=== PATIENT | male | born 1960 | race African-American/Black ===

== ENCOUNTER 2017-10-13 05:43 | Emergency (ER) | payer BC, OTHER ==
[~2017-10-13 05:43] MED LIST: Z.0.NO CURRENT MEDS
[2017-10-13 05:46] VITALS: BP 141/82; PULSE 77; RESP 18; TEMP 97.6; O2SAT 100
[2017-10-13] MEDS ORDERED: CEPH-460 PO (06:31)
[2017-10-13] MEDS ORDERED: TYLETAB34 PO (06:31)
--- NOTE | 2017-10-13 06:32 | PD ---
HPI Chief Complaint: Lump, Cyst, Hernia Time Seen by Provider: 06:19 Travel History International Travel<30 days: No Contact w/Intl Traveler<30days: No Traveled to known affect area: No History of Present Illness HPI Patient is a 56-year-old male presenting to the emergency department for evaluation of a cyst to his mid upper back. Patient states it started bleeding yesterday. He reports that he has had this cyst since he was a teenager. He reports that his doctor who is Dr. Hines stated it was in fact assess. Patient states that it has not bothered him before now. He denies any fevers, redness, warmth. He states it is tender but denies any significant pain. Patient denies a significant past medical history. Symptom onset was years ago , symptoms are chronic in nature with an acute exacerbation. PFSH Past Medical History Medical History: Denies Significant Hx Diminished Hearing: No Past Surgical History Surgical History: No Previous Surgery Social History Alcohol Use: No Tobacco Use: No Substance Use: No Allergies-Medications (Allergen,Severity, Reaction): Coded Allergies: No Known Allergies (Unverified , 08/16/12) Reported Meds & Prescriptions Reported Meds & Active Scripts Active Reported No Current Meds (Miscellaneous Medication) Misc Review of Systems Except as stated in HPI: all other systems reviewed are Neg Skin: Positive Lumps Physical Exam Narrative GENERAL: Well-developed, well-nourished, alert -[place] male. Presenting in no acute distress. SKIN: Warm and dry. 6 inch by four-inch area of firmness to the left upper back adjacent to scapula. There is a 2 cm area of fluctuance in that area. No erythema or warmth noted. HEAD: Atraumatic. Normocephalic. EYES: Pupils equal and round. No scleral icterus. No injection or drainage. ENT: No nasal bleeding or discharge. Mucous membranes pink and moist. NECK: Trachea midline. No JVD. CARDIOVASCULAR: Regular rate and rhythm. RESPIRATORY: No accessory muscle use. Clear to auscultation. Breath sounds equal bilaterally. GASTROINTESTINAL: Abdomen soft, non-tender, nondistended. Hepatic and splenic margins not palpable. MUSCULOSKELETAL: Extremities without clubbing, cyanosis, or edema. No obvious deformities. NEUROLOGICAL: Awake and alert. No obvious cranial nerve deficits. Motor grossly within normal limits. Five out of 5 muscle strength in the arms and legs. Normal speech. PSYCHIATRIC: Appropriate mood and affect; insight and judgment normal. Data Data Last Documented VS Vital Signs Date Time Temp Pulse Resp B/P (MAP) Pulse Ox O2 Delivery O2 Flow Rate FiO2 10/13/17 05:46 97.6 77 18 141/82 (101) 100 [facility] Medical Decision Making Medical Screen Exam Complete: Yes Emergency Medical Condition: Yes Interpretation(s) Vital Signs Date Time Temp Pulse Resp B/P (MAP) Pulse Ox O2 Delivery O2 Flow Rate FiO2 10/13/17 05:46 97.6 77 18 141/82 (101) 100 Differential Diagnosis Abscess versus sebaceous cyst versus cellulitis versus other Narrative Course Patient is a 56-year-old male presenting to the emergency department for evaluation of a cyst that started draining yesterday. Exam appears consistent with a sebaceous cyst. Please see procedure report for I&D. Wound was not packed, patient was advised that he should follow-up with a photograph finisher to have it further excised. There is still an area of firmness without fluctuance. The cyst has been there for almost 40 years. Patient be placed on antibiotic prophylactically. He was advised that stitches will need to be removed in 1 week to 10 days. He does have an appointment with Dr. Hines on October 22. Patient was encouraged return to emergency department any new or worsening symptoms. Patient was advised on wound care and to keep wound covered. He verbalized understanding of instructions. Patient stable for discharge. Procedures Procedure Narrative After the risks and benefits were discussed the following procedure was performed: INCISION AND DRAINAGE OF ABSCESS: The area was prepped and was sterilely draped. A subcutaneous wheal of 1 % Xylocaine with a total number 3mL was used to anesthetize the area. The area was properly anesthetized. A number 11 scalpel was used to make a 1 -cm incision across the area of the abscess. The abscess was drained an irrigated with normal saline. Sterile dressing applied. Wound was not packed, there was no purulent drainage, it was a waxy material that was expressed. A stitch was placed to approximate the incision. 4-0 Prolene was used Diagnosis Primary Impression: Sebaceous cyst Referrals: Appraisal Coordinator 1 week Patient Instructions: Abscess Incision and Drainage (GEN), General Instructions Additional Instructions: Follow-up with a photograph finisher for further evaluation Follow-up with your primary doctor Complete course of antibiotics as prescribed Stitches will need to be removed in 1 week to 10 days, your primary doctor can remove the stitch or you can return to emergency department Return to emergency department for any new or worsening symptoms Do not drive or operate machinery while taking pain medication Med/Other Pt SpecificInfo: Prescription(s) given Scripts Acetaminophen-Codeine (Tylenol-Codeine #3) 300-30 mg Tab 1 TAB PO Q6H Y for PAIN, #10 TAB 0 Refills Prov: Dianelys Jacobson 10/13/17 Cephalexin (Keflex) 500 Mg Cap 500 MG PO Q12H for Infection for 7 Days, #14 CAP 0 Refills Prov: Dianelys Jacobson 10/13/17 Disposition: 01 DISCHARGE HOME Condition: Stable Dianelys Jacobson October 13, 2017 06:32
== END 2017-10-13 06:45 | disposition home or self-care (01) ==
LOC: NEPD 05:43
DX: L72.3 Sebaceous cyst (principal)
CPT/HCPCS: 10060